=== PATIENT | female | born 1960 | race African-American/Black ===

== ENCOUNTER 2017-08-13 10:14 | Emergency (ER) | payer OTHER ==
[~2017-08-13] VITALS: Wt 89.4 kg
[2017-08-13] MEDS ORDERED: IBUPROFEN 600 MG TAB PO ONE (11:30)
--- NOTE | 2017-08-13 11:48 | ERD ---
ER Documentation Chief Complaint Chief Complaint RIGHT RING FINGER INJURY X1 WEEK HPI 57-year-old otherwise healthy female presents the emergency department for complaints of pain localized to the right fourth finger 1 week. Patient states that she was playing with her grandson on a bed when she jammed her finger. She rates her pain at a constant throbbing 9 out of 10 localized to the distal aspect of the finger. She denies numbness or tingling. She attempted to treat her symptoms with ibuprofen at home And reports moderate improvement. Patient also reports swelling to her right wrist times 9 months. She states she has a son with disability and reports multiple incidences of physical injury to her upper extremities and is unsure if it is due to swelling from an old injury. She was seen by her primary care provider regarding her wrist swelling and states negative x-ray results. She denies any new injury since that time. She denies any recent surgery, immobilization, chest pain. She is also requesting an albuterol inhaler for chronic Shortness of breath with exertion. Patient has been assessed and evaluated by a lower school music teacher within the past year. She states her echocardiogram and stress test were unremarkable. Prescribed an albuterol inhaler which improved her symptoms. She has a follow- up planned with her primary care provider regarding this ongoing condition. ROS All systems reviewed and are negative except as per history of present illness. Medications Home Meds Active Scripts Albuterol Sulfate* (Proair HFA*) 8.5 Gm Hfa.aer.ad, 2 PUFF INH Q4, #1 INHALER Prov:DERECK MAC PA-C 08/13/17 Prednisone* (Prednisone*) 20 Mg Tab, 40 MG PO DAILY for 4 Days, TAB Prov:DERECK MAC PA-C 08/13/17 Acetaminophen with Codeine (Acetaminophen-Cod #3 Tablet) 1 Each Tablet, 1 TAB PO Q6H, #7 TAB Prov:DERECK MAC PA-C 08/13/17 Naproxen* (Naprosyn*) 500 Mg Tablet, 500 MG PO BID Y for PAIN AND/OR INFLAMMATION, #30 TAB Prov:DERECK MAC PA-C 08/13/17 Allergies Allergies: Coded Allergies: No Known Allergy (Unverified , 08/13/17) Physical Exam Vitals Vital Signs Date Time Temp Pulse Resp B/P Pulse Ox O2 Delivery O2 Flow Rate FiO2 12/5/17 10:20 98.4 83 17 143/88 99 Physical Exam Const: We will developed, well-nourished, in Head: Atraumatic Eyes: Normal Conjunctiva ENT: Normal External Ears, Nose and Mouth. Neck: Full range of motion..~ No meningismus. Resp: Clear to auscultation bilaterally Cardio: Regular rate and rhythm, no murmurs Abd: Soft, non tender, non distended. Normal bowel sounds Skin: No petechiae or rashes Back: No midline or flank tenderness Ext: Mild soft swelling overlying the dorsum of the right wrist. No erythema , fluctuance or surface trauma. No tenderness to palpation. No bony deformity. Full range of motion at the wrist. Supination pronation intact. Localized non-erythematous swelling to the distal aspect of the right fourth digit of the hand. Mild ecchymosis at the distal tip of the fourth digit. Diffuse mild tenderness at the distal fourth digit. Patient has full flexion and extension of the fourth finger. No rotational deformity. Two-point discrimination intact along radial and ulnar aspect. Brisk capillary refill. Radial pulse 2+. No scaphoid tenderness. Good audit reviewer strength. Radial median ulnar motor function intact. Neur: Awake and alert Psych: Normal Mood and Affect Results 24 hrs Current Medications Medications (Trade) Dose Ordered Sig/Tom Route PRN Reason Start Time Stop Time Status Last Admin Dose Admin Ibuprofen (Motrin) 600 mg ONCE ONCE PO 08/13/17 11:30 08/13/17 11:31 DC 08/13/17 11:27 Acetaminophen (Tylenol Tab) 650 mg ONCE ONCE PO 08/13/17 13:00 08/13/17 13:01 DC 08/13/17 13:04 Procedures/MDM PROCEDURE: XR Finger. CLINICAL INDICATION: Right fourth finger pain. TECHNIQUE: Three views of the right the fourth finger. COMPARISON: None. FINDINGS: Transverse, mildly displaced and impacted fracture through the mid shaft of the fourth distal phalanx is identified. The remaining osseous structures appear intact. No destructive bony lesions are observed. Interosseous spaces appear normal. The soft tissues are grossly unremarkable. IMPRESSION: Fourth distal phalanx fracture. If further characterization is needed CT or MRI could be helpful. If there is high clinical suspicion for additional traumatic injury, further evaluation with CT should be considered. RPTAT: AA .Rubin Simmons MD, MD Date Time Electronically viewed and signed by .Rubin Simmons MD, MD on 08/13/2017 12:16 .P/ CC: DERECK MAC PA-C PROCEDURE: Right upper extremity venous ultrasound CLINICAL INDICATION: Right arm pain and swelling, deep venous thrombosis TECHNIQUE: Coronado scale, color doppler, spectral doppler ultrasound imaging of the venous system of the right upper extremity. Augmentation maneuvers were utilized. COMPARISON: No prior studies are available for comparison. FINDINGS: RIGHT: Internal jugular vein: Patent. Subclavian vein: Patent. Axillary vein: Patent. Brachial vein: Patent. Basilic vein: Patent. Cephalic vein: Patent. Radial vein: Patent. Ulnar vein: Patent. IMPRESSION: No evidence of a deep vein thrombosis involving the right upper extremity. RPTAT: AADD .Jean Kuhn MD, MD Date Time Electronically viewed and signed by .Jean Kuhn MD, MD on 08/13/2017 13:37 .B/ CC: DERECK MAC PA-C This is a 57-year-old female who presents the emergency department for complaints of right fourth digit pain after playing with her grandson 1 week ago. Physical exam with evidence of mild swelling and bruising. Patient able to exhibit full range of motion and is neurovascularly intact. Patient also reports swelling of her right wrist times 9 months. She reports multiple prior injuries to the right upper extremity denies any specific trauma. She denies fever, chills, recent surgery, or Chest pain. Vital signs reviewed within normal limits upon arrival. Patient without cyanosis or evidence of hypoxia. Swelling is non-erythematous, nontender, and localized to the dorsum of the right wrist. Patient has had a prior x-ray to her right wrist was unremarkable. Vascular Doppler imaging was offered and patient requested to have an ultrasound completed. X-ray With evidence of distal phalanx fracture. Patient will be placed in splint. Follow-up with hand specialist as needed. Ultrasound venous study unremarkable for acute process of the right upper extremity. At this time low suspicion for acute DVT or pulmonary embolus. CT imaging discussed for joint decision was made for discharge with close outpatient follow-up with her primary care provider. Patient's wrist swelling likely due to old injury versus arthritis. Patient will be provided with an albuterol inhaler as requested. Patient states she Has experienced intermittent shortness of breath walking up her stairs to her apartment. She states she was seen by a lower school music teacher and had a full cardiac workup with stress test and echo completed within the past year. She was prescribed an albuterol inhaler which she has run out of. Patient denies chest pain or worsening symptoms today. Instructed her to follow-up with her primary doctor and lower school music teacher for proper management of her condition. Patient and daughter are agreeable with plan.. Physical exam of the heart and lungs within normal limits. Patient not in any respiratory distress and moving air well. She denies recent upper respiratory infection. Based on patient's history of present illness and physical examination the decision was made to discharge. The patient was re-evaluated after ED treatment and stabilizing measures, and symptoms have improved. There is no evidence of life threatening injuries or illnesses at this time. Patient placed in finger splint and recommended to continue anti-inflammatory medication and ice. On re-examination, patient resting in no distress, stable vital signs, reports feeling better and safe for discharge with outpatient follow up with PMD in 1-2 days. Patient given return precautions. Departure Diagnosis: Primary Impression: Pain of finger Laterality: right Qualified Code: M79.644 - Pain of finger of right hand Additional Impression: Wrist swelling Laterality: right Qualified Code: M25.431 - Swelling of joint of right wrist DERECK MAC PA-C Aug 13, 2017 11:48
--- NOTE | 2017-08-13 12:16 | RADRPT ---
PROCEDURE: XR Finger. CLINICAL INDICATION: Right fourth finger pain. TECHNIQUE: Three views of the right the fourth finger. COMPARISON: None. FINDINGS: Transverse, mildly displaced and impacted fracture through the mid shaft of the fourth distal phalan x is identified. The remaining osseous structures appear intact. No destructive bony lesions are obs erved. Interosseous spaces appear normal. The soft tissues are grossly unremarkable. IMPRESSION: Fourth distal phalanx fracture. If further characterization is needed CT or MRI could be helpful. If there is high clinical suspicion for additional traumatic injury, further evaluation with CT shou ld be considered. RPTAT: AA .Rubin Simmons MD, MD Date Time Electronically viewed and signed by .Rubin Simmons MD, on 08/13/2017 12:16 .P/
[2017-08-13] MEDS ORDERED: ACETAMINOPHEN 325 MG TAB PO ONE (13:00)
--- NOTE | 2017-08-13 13:37 | RADRPT ---
PROCEDURE: Right upper extremity venous ultrasound CLINICAL INDICATION: Right arm pain and swelling, deep venous thrombosis TECHNIQUE: Coronado scale, color doppler, spectral doppler ultrasound imaging of the venous system of the right upper extremity. Augmentation maneuvers were utilized. COMPARISON: No prior studies are available for comparison. FINDINGS: RIGHT: Internal jugular vein: Patent. Subclavian vein: Patent. Axillary vein: Patent. Brachial vein: Patent. Basilic vein: Patent. Cephalic vein: Patent. Radial vein: Patent. Ulnar vein: Patent. IMPRESSION: No evidence of a deep vein thrombosis involving the right upper extremity. RPTAT: AADD .Jean Kuhn MD, MD Date Time Electronically viewed and signed by .Jean Kuhn MD, on 08/13/2017 13:37 .B/
[2017-08-13] MEDS ORDERED: ACET1TAB40 PO (13:47)
[2017-08-13] MEDS ORDERED: NAPR-260 PO (13:47)
[2017-08-13] MEDS ORDERED: PRED20TA PO (13:47)
[2017-08-13] MEDS ORDERED: ALBU8.5H3 INH (13:54)
== END 2017-08-13 14:40 | disposition home or self-care (01) ==
LOC: FTE 10:14
DX: S60.041A Contusion of right ring finger without damage to nail, initial encounter (principal); W23.1XXA Caught, crushed, jammed, or pinched between stationary objects, initial encounter; Y92.9 Unspecified place or not applicable
CPT/HCPCS: 29130; 73140; 93971; Z7502; Z7610

== ENCOUNTER 2017-12-18 16:04 | Emergency (ER) | END 2017-12-18 19:30 | disposition left against medical advice (07) ==

== ENCOUNTER 2018-04-11 03:33 | Emergency (ER) | END 2018-04-11 07:14 | disposition home or self-care (01) ==

== ENCOUNTER 2018-07-22 14:27 | Emergency (ER) | END 2018-07-22 16:25 | disposition home or self-care (01) ==